=== PATIENT | female | born 1980 | race Caucasian/White ===

== ENCOUNTER 2020-12-27 11:04 | Inpatient (IN) | payer OTHER ==
[2020-12-27 12:24] VITALS: BMI 23.5
[2020-12-27] MEDS ORDERED: CITRIC ACID/SODIUM CITRATE 30 ML UNIT-DOSE CUP PO ONE (12:47)
[2020-12-27] MEDS ORDERED: ELECTROLYTE-148 SOLN 500 ML IV ONE (12:47)
[2020-12-27] MEDS ORDERED: morphine SULFATE/PF 0.5 MG/ML (2cc Syringe - QUVA) EP ONE (13:01)
[2020-12-27] MEDS ORDERED: IBUPROFEN 600 MG TABLET (FP) PO PRN ×2 (13:01→16:11)
[2020-12-27] MEDS ORDERED: ONDANSETRON 4 MG/2 ML VIAL IVPUSH PRN (13:01)
[2020-12-27] MEDS ORDERED: ELECTROLYTE-148 SOLN 1,000 ML IV SCH (13:15)
[2020-12-27] MEDS ORDERED: OXYTOCIN 20 UNITS in 0.9% NS 20 UNIT/1,000 ML INFUS.BAG IV ONE ×3 (13:17→16:00)
[2020-12-27] MEDS ORDERED: morphine SULFATE/PF 0.5 MG/ML (2cc Syringe - QUVA) ONE (13:19)
[2020-12-27] MEDS ORDERED: ONDANSETRON 4 MG/2 ML VIAL ONE (13:21)
[2020-12-27] MEDS ORDERED: ePHEDrine SULFATE 50 MG/1 ML AMPULE ONE (13:21)
[2020-12-27] MEDS ORDERED: SODIUM CHLORIDE 0.9% P/F 10 ML VIAL IJ ONE (13:24)
[2020-12-27] MEDS ORDERED: ceFAZolin SODIUM 1 GM VIAL ONE (13:24)
[2020-12-27] MEDS ORDERED: OXYTOCIN 10 UNIT/ML 10ML MDV ONE (14:10)
[2020-12-27] MEDS ORDERED: KETOROLAC TROMETHAMINE 30 MG/1 ML VIAL ONE (14:27)
[2020-12-27] MEDS: OXYTOCIN 20 UNITS in 0.9% NS 20 UNIT/1,000 ML INFUS.BAG IV SCH (16:00)
[2020-12-27] MEDS ORDERED: SENNOSIDES/DOCUSATE COMBO (SENNA PLUS) TABLET (UD) PO PRN (16:11)
[2020-12-27] MEDS ORDERED: ACETAMINOPHEN 325 MG TABLET (FP) PO PRN (16:11)
[2020-12-27] MEDS ORDERED: METHYLERGONOVINE MALEATE 0.2 MG/1 ML AMP IM PRN (16:11)
[2020-12-27] MEDS ORDERED: IBUPROFEN 800 MG/8 ML IJ IVPB PRN (16:11)
[2020-12-27] MEDS ORDERED: oxyCODONE HCL 5 MG TABLET PO PRN (16:11)
[2020-12-27] MEDS: ACETAMINOPHEN 325 MG TABLET (FP) PO PRN (20:13)
[2020-12-28] MEDS: oxyCODONE HCL 5 MG TABLET PO PRN ×2 (10:36→18:43)
[2020-12-28] MEDS: SIMETHICONE 80 MG TAB.CHEW (FP) PO PRN ×2 (10:37→18:43)
[2020-12-28 11:47] LABS: BASO % 0.3 % (0-2.0); EOS % 0.3 % (0-4.5); HEMATOCRIT 16.6 % (32.4-45.2); LYMPH % 19.8 % (8-40); MCH 25.8 pg (25.7-33.7); MCHC 32.6 g/dl (32.0-36.0); MEAN CELL VOLUME 79.2 fl (80-96); MEAN PLT VOLUME 9.5 fl (7.5-11.1); NEUT % 75.6 % (42.8-82.8); PLATELET COUNT 152 10^3/uL (134-434); RDW 14.8 % (11.6-15.6); WHITE BLOOD COUNT 10.1 K/mm3 (4.0-10.0)
[2020-12-28 11:57] LABS: HEMOGLOBIN 5.4 GM/dL (10.7-15.3)
[2020-12-28 13:11] LABS: INR 0.96 (0.83-1.09); PROTHROMBIN TIME (PATIENT) 11.6 SEC (9.7-13.0)
[2020-12-28 13:18] LABS: CHLORIDE 109 mmol/L (98-107); SODIUM 139 mmol/L (136-145)
[2020-12-28 13:20] LABS: CALCIUM 7.6 mg/dL (8.5-10.1)
[2020-12-28 13:21] LABS: ANION GAP 5 MMOL/L (8-16); BLOOD UREA NITROGEN 10.2 mg/dL (7-18); CO2 25 mmol/L (21-32); GLUCOSE,RANDOM 73 mg/dL (74-106)
[2020-12-28 13:24] LABS: CREATININE 0.7 mg/dL (0.55-1.3); SGOT/AST 45 U/L (15-37); SGPT/ALT 18 U/L (13-61)
[2020-12-28 13:25] LABS: BILIRUBIN,TOTAL 0.3 mg/dL (0.2-1); TOT PROT 4.4 g/dl (6.4-8.2)
[2020-12-28 14:05] LABS: ALBUMIN 1.8 g/dl (3.4-5.0); ALK PHOS 91 U/L (45-117)
[2020-12-28 14:47] LABS: LDH 385 U/L (84-246)
[2020-12-28] MEDS ORDERED: BISACODYL 10 MG SUPP.RECT RC PRN (16:11)
[2020-12-28] MEDS: ACETAMINOPHEN 325 MG TABLET (FP) PO PRN (21:02)
[2020-12-29] MEDS: oxyCODONE HCL 5 MG TABLET PO PRN ×2 (03:42→20:49)
[2020-12-29 04:10] LABS: HIV INTERPRETATION NEGATIVE (NEGATIVE)
[2020-12-29 08:44] LABS: BASO % 0.3 % (0-2.0); HEMATOCRIT 21.1 % (32.4-45.2); HEMOGLOBIN 7.1 GM/dL (10.7-15.3); MCH 26.8 pg (25.7-33.7); MCHC 33.5 g/dl (32.0-36.0); MEAN CELL VOLUME 79.9 fl (80-96); MEAN PLT VOLUME 8.6 fl (7.5-11.1); MONO % 6.4 % (3.8-10.2); NEUT % 75.3 % (42.8-82.8); PLATELET COUNT 128 10^3/uL (134-434); RBC 2.64 M/mm3 (3.60-5.2); RDW 14.9 % (11.6-15.6)
[2020-12-29] MEDS: ACETAMINOPHEN 325 MG TABLET (FP) PO PRN ×2 (09:57→15:47)
[2020-12-29] MEDS: FERROUS SO4 325 MG TABLET (FP) PO SCH ×2 (10:50→21:00)
[2020-12-29 11:54] LABS: BASO % 0.6 % (0-2.0); HEMATOCRIT 22.7 % (32.4-45.2); HEMOGLOBIN 7.5 GM/dL (10.7-15.3); LYMPH % 13.9 % (8-40); MCH 26.6 pg (25.7-33.7); MCHC 33.1 g/dl (32.0-36.0); MEAN CELL VOLUME 80.3 fl (80-96); MEAN PLT VOLUME 8.3 fl (7.5-11.1); MONO % 5.1 % (3.8-10.2); NEUT % 79.4 % (42.8-82.8); PLATELET COUNT 135 10^3/uL (134-434); RBC 2.83 M/mm3 (3.60-5.2); RDW 14.9 % (11.6-15.6); WHITE BLOOD COUNT 11.1 K/mm3 (4.0-10.0)
[2020-12-29 12:20] LABS: ALBUMIN 1.7 g/dl (3.4-5.0); BLOOD UREA NITROGEN 6.3 mg/dL (7-18); CALCIUM 7.6 mg/dL (8.5-10.1)
[2020-12-29 12:24] LABS: CREATININE 0.7 mg/dL (0.55-1.3)
[2020-12-29 12:25] LABS: BILIRUBIN,TOTAL 0.3 mg/dL (0.2-1); TOT PROT 4.4 g/dl (6.4-8.2)
[2020-12-29 12:29] LABS: N-TERMINAL BNP 320.3 pg/ml (5-125)
[2020-12-29 20:09] LABS: URINE BARBITURATES NEGATIVE (NEGATIVE)
[2020-12-29 20:10] LABS: METHADONE, UR NEGATIVE (NEGATIVE); OPIATES, URI NEGATIVE (NEGATIVE); PHENCYCLIDINE,URINE NEGATIVE (NEGATIVE)
[2020-12-29 20:16] LABS: COCAINE, UR NEGATIVE (NEGATIVE); URINE AMPHETAMINES NEGATIVE (NEGATIVE); URINE BENZODIAZEPINES NEGATIVE (NEGATIVE)
[2020-12-29] MEDS: SIMETHICONE 80 MG TAB.CHEW (FP) PO PRN (20:49)
[2020-12-30] MEDS: SIMETHICONE 80 MG TAB.CHEW (FP) PO PRN (04:01)
[2020-12-30] MEDS: oxyCODONE HCL 5 MG TABLET PO PRN ×2 (04:01→13:01)
[2020-12-30] MEDS: FERROUS SO4 325 MG TABLET (FP) PO SCH (09:47)
[2020-12-30 10:25] VITALS: BP 138/76; PULSE 64; TEMP 98.3
[2020-12-30 11:30] LABS: BASO % 0.4 % (0-2.0); EOS % 2.9 % (0-4.5); HEMATOCRIT 23.1 % (32.4-45.2); HEMOGLOBIN 7.7 GM/dL (10.7-15.3); LYMPH % 12.7 % (8-40); MCH 26.7 pg (25.7-33.7); MCHC 33.2 g/dl (32.0-36.0); MEAN CELL VOLUME 80.6 fl (80-96); MEAN PLT VOLUME 8.3 fl (7.5-11.1); MONO % 5.4 % (3.8-10.2); NEUT % 78.6 % (42.8-82.8); PLATELET COUNT 160 10^3/uL (134-434); RBC 2.87 M/mm3 (3.60-5.2); RDW 15.5 % (11.6-15.6); WHITE BLOOD COUNT 8.4 K/mm3 (4.0-10.0)
[2020-12-30 11:53] LABS: CALCIUM 7.6 mg/dL (8.5-10.1)
[2020-12-30 11:54] LABS: ALBUMIN 1.7 g/dl (3.4-5.0); BLOOD UREA NITROGEN 5.4 mg/dL (7-18)
[2020-12-30 11:57] LABS: CREATININE 0.6 mg/dL (0.55-1.3)
[2020-12-30 11:58] LABS: BILIRUBIN,TOTAL 0.6 mg/dL (0.2-1)
[2020-12-30 11:59] LABS: TOT PROT 4.4 g/dl (6.4-8.2)
[2020-12-30] MEDS ORDERED: DIPHTH,PERTUSS(ACELL),TET 0.5 ML DISP.SYRIN IM ONE (15:00)
[2020-12-30] MEDS: OXYTOCIN 20 UNITS in 0.9% NS 20 UNIT/1,000 ML INFUS.BAG IV SCH (16:17)
[2020-12-30] MEDS: ACETAMINOPHEN 325 MG TABLET (FP) PO PRN (17:59)
== END 2020-12-30 18:10 | disposition home or self-care (01) | DRG 786 ==
LOC: JLDR 11:04 → J3W 17:20
PROVIDERS: ADMIT Obstetrics & Gynecology
PROC: 10D00Z1 Extraction of Products of Conception, Low, Open Approach (ICD-10-PCS; principal; 2020-12-27)
PROC: 0DNW0ZZ Release Peritoneum, Open Approach (ICD-10-PCS; 2020-12-27)
PROC: 30233N1 Transfusion of Nonautologous Red Blood Cells into Peripheral Vein, Percutaneous Approach (ICD-10-PCS; 2020-12-28)
DX: O34.29 Maternal care due to uterine scar from other previous surgery (principal); O90.3 Peripartum cardiomyopathy; D62 Acute posthemorrhagic anemia; O90.81 Anemia of the puerperium; O24.420 Gestational diabetes mellitus in childbirth, diet controlled; O69.2XX0 Labor and delivery complicated by other cord entanglement, with compression, not applicable or unspecified; N73.6 Female pelvic peritoneal adhesions (postinfective); R07.9 Chest pain, unspecified; Z37.0 Single live birth; Z3A.37 37 weeks gestation of pregnancy
CPT/HCPCS: 36415; 36430; 71260-TC; 76700-TC; 80053; 80061; 80307; 82550; 82553; 83036; 83615; 83880; 84443; 84484; 85025; 85610; 85730; 86762; 86850; 86900; 86901; 86922; 87389; 88307-TC; 90715; 93005; 93010; 93306-TC; P9058